=== PATIENT | male | born 1965 | race Hispanic/Latino ===

== ENCOUNTER → 2020-08-28 | Outpatient (CLI) | payer OTHER ==
[~2020-08-28] MED LIST: COVID-19 VACC, MRNA(MODERNA)/PF 100 MCG/0.5 ML VIAL IM ONE
== END ==
LOC: VACCPMC 16:00
DX: Z23 Encounter for immunization (principal); Z20.822 Contact with and (suspected) exposure to COVID-19

== ENCOUNTER → 2020-09-26 | Outpatient (CLI) | payer OTHER | END | DRG 951 | LOC: VACCPMC 12:10 | DX: Z23 Encounter for immunization (principal); Z20.822 Contact with and (suspected) exposure to COVID-19 | CPT/HCPCS: 0012A; 91301 ==

== ENCOUNTER → 2020-10-01 | Outpatient (CLI) | payer BC, MEDICARE | LOC: US 07:52 | PROVIDERS: ATTEND Radiology Vascular & Interventional Radiology | DX: I70.211 Atherosclerosis of native arteries of extremities with intermittent claudication, right leg (principal); N28.1 Cyst of kidney, acquired | CPT/HCPCS: 76700; 93925 ==

== ENCOUNTER 2022-07-06 21:24 | Emergency (ER) | payer BC, MEDICARE ==
[~2022-07-06] VITALS: Ht 188 cm; Wt 113.4 kg
[2022-07-06] MEDS ORDERED: KETOROLAC TROMETHAMINE 30 MG/ML VIAL IM STA (21:49)
[2022-07-06] MEDS ORDERED: HYDROCODONE/APAP 5MG-325MG TAB PO ONE (22:00)
[2022-07-06] MEDS ORDERED: KETOROLAC TROMETHAMINE 60 MG/2 ML VIAL ONE (22:21)
[2022-07-06] MEDS ORDERED: HYDROCODONE/APAP 5MG-325MG TAB ONE (22:21)
[2022-07-06] MEDS ORDERED: PREDNISONE20 MG PO (22:30)
== END 2022-07-06 23:18 | disposition home or self-care (01) ==
LOC: FSED 21:41 → MERGE 21:41 → FSED 23:18
DX: M79.642 Pain in left hand (principal); I10 Essential (primary) hypertension; E11.9 Type 2 diabetes mellitus without complications; I25.10 Atherosclerotic heart disease of native coronary artery without angina pectoris; I73.9 Peripheral vascular disease, unspecified
CPT/HCPCS: 73130; 99283; J1885

== ENCOUNTER 2022-10-31 17:45 | Emergency (ER) | payer BC, MEDICARE ==
[~2022-10-31] VITALS: Ht 180.3 cm; Wt 88.9 kg
[~2022-10-31 17:45] MED LIST changes: -COVID-19 VACC, MRNA(MODERNA)/PF 100 MCG/0.5 ML VIAL IM ONE; +PREDNISONE20 MG PO
[2022-10-31] MEDS ORDERED: HYDROCODON-ACE1 EA12 PO (20:33)
[2022-10-31 20:45] VITALS: BP 147/72
[2022-10-31] MEDS ORDERED: HYDROCODONE/APAP 5MG-325MG TAB PO ONE (20:45)
[2022-10-31] MEDS ORDERED: ONDANSETRON HCL 4 MG ORAL DISINTEGRATING TAB PO ONE (20:45)
[2022-10-31] MEDS ORDERED: ONDANSETRON HCL 4 MG ORAL DISINTEGRATING TAB ONE (20:48)
[2022-10-31] MEDS ORDERED: HYDROCODONE/APAP 5MG-325MG TAB ONE (20:48)
== END 2022-10-31 20:45 | disposition home or self-care (01) ==
LOC: FSED 18:42
DX: E11.621 Type 2 diabetes mellitus with foot ulcer (principal); L97.529 Non-pressure chronic ulcer of other part of left foot with unspecified severity; Z76.0 Encounter for issue of repeat prescription; E11.51 Type 2 diabetes mellitus with diabetic peripheral angiopathy without gangrene; Z95.820 Peripheral vascular angioplasty status with implants and grafts; I10 Essential (primary) hypertension; E78.5 Hyperlipidemia, unspecified; Z79.52 Long term (current) use of systemic steroids
CPT/HCPCS: 99282; Q0126

== ENCOUNTER 2022-11-07 15:36 | Inpatient (IN) | payer BC, MEDICARE ==
[~2022-11-07] VITALS: Ht 180.3 cm; Wt 88.7 kg
[~2022-11-07 15:36] MED LIST changes: +HYDROCODON-ACE1 EA12 PO
[2022-11-07] MEDS ORDERED: LACTATED RINGER'S 1,000 ML INJ ONE ×2 (16:15→16:30)
[2022-11-07] MEDS ORDERED: METOPROLOL SUCC50 MG PO (17:02)
[2022-11-07] MEDS ORDERED: EXFORGE 10-1601 EACH PO (17:02)
[2022-11-07] MEDS ORDERED: TRESIBA FL100 UNIT/1 SC (17:02)
[2022-11-07] MEDS ORDERED: HYDRALAZINE HCL25 MG PO (17:02)
[2022-11-07] MEDS ORDERED: FARXIGA5 MG PO (17:02)
[2022-11-07] MEDS ORDERED: PLAVIX75 MG PO (17:02)
[2022-11-07] MEDS ORDERED: VICTOZA 3-0.6 MG/0.1 SC (17:02)
[2022-11-07] MEDS ORDERED: NOVOLOG100 UNIT/1 SC (17:02)
[2022-11-07] MEDS ORDERED: ONDANSETRON HCL INJ 2MG/ML 2ML 2 MG/ML VIAL ONE (17:44)
[2022-11-07] MEDS ORDERED: LACTATED RINGER'S 2,000 ML ONE (17:45)
[2022-11-07] MEDS ORDERED: ACETAMINOPHEN 325 MG TAB ONE (17:54)
[2022-11-07] MEDS: CEFEPIME 2 GM in SODIUM CHLORIDE 0.9% 100 ML IV SCH (17:58)
[2022-11-07] MEDS ORDERED: ONDANSETRON HCL INJ 2MG/ML 2ML 2 MG/ML VIAL IV STA (18:06)
[2022-11-07] MEDS ORDERED: ACETAMINOPHEN 325 MG TAB PO ONE (18:15)
[2022-11-07 18:26] LABS: INR 1.03
[2022-11-07 18:27] LABS: PARTIAL THROMBOPLASTIN TIME 35.7 seconds (23.8-35.5)
[2022-11-07] MEDS ORDERED: LACTATED RINGER'S 1,000 ML IV ONE (18:30)
[2022-11-07] MEDS ORDERED: KETOROLAC TROMETHAMINE 30 MG/ML VIAL IV ONE (18:30)
[2022-11-07] MEDS ORDERED: SODIUM CHLORIDE 0.9% 100 ML ONE (18:31)
[2022-11-07] MEDS ORDERED: CEFEPIME HCL 1 GM VIAL ONE (18:31)
[2022-11-07] MEDS ORDERED: IOPAMIDOL 370 MG/ML 100 ML INFUS..BTL INJ ONE ×2 (18:34→19:52)
[2022-11-07] MEDS ORDERED: LACTATED RINGER'S 1,000 ML ONE (18:42)
[2022-11-07] MEDS ORDERED: KETOROLAC TROMETHAMINE 30 MG/ML VIAL ONE (18:42)
[2022-11-07] MEDS ORDERED: SODIUM CHLORIDE FLUSH 10 ML SYR INJ PRN (19:15)
[2022-11-07] MEDS ORDERED: FUROSEMIDE INJ 10 MG/ML 4 ML VIAL IV ONE (19:15)
[2022-11-07] MEDS ORDERED: FUROSEMIDE INJ 10 MG/ML 4 ML VIAL ONE (19:20)
[2022-11-07] MEDS ORDERED: DEXTROSE 50% SYRINGE 50 ML IV PRN (19:30)
[2022-11-07] MEDS: LEVOFLOXACIN 750MG/D5W 150ML 150 ML IV SCH (19:33)
[2022-11-07] MEDS ORDERED: LEVOFLOXACIN 750MG/D5W 150ML 150 ML IV ONE (19:42)
[2022-11-07] MEDS ORDERED: Vancomycin IV 2 GM in SODIUM CHLORIDE 0.9% 250ML 250 ML IV ONE (20:00)
[2022-11-07 20:12] VITALS: BP 116/49
[2022-11-07] MEDS: INSULIN LISPRO 100 UNIT/1 ML 3ML VIAL SQ SCH (21:00)
[2022-11-07] MEDS: ONDANSETRON HCL INJ 2MG/ML 2ML 2 MG/ML VIAL IV PRN (21:39)
[2022-11-07] MEDS: HYDROMORPHONE 1MG/1ML INJ IV PRN (21:39)
[2022-11-07 22:00] VITALS: BP 114/88
[2022-11-07 23:04] VITALS: BP 46/13
[2022-11-07 23:09] VITALS: BP 107/52
[2022-11-07 23:29] VITALS: BP 107/52
[2022-11-08] VITALS (25 sets, daily range): BP systolic 129–167; BP diastolic 58–147
[2022-11-08] MEDS: ONDANSETRON HCL INJ 2MG/ML 2ML 2 MG/ML VIAL IV PRN ×3 (01:03→19:28)
[2022-11-08] MEDS: HYDROMORPHONE 1MG/1ML INJ IV PRN ×6 (01:04→23:31)
[2022-11-08 01:10] LABS: CREATINE KINASE MB 2.7 ng/mL (0-4.3)
[2022-11-08] MEDS: ACETAMINOPHEN 325 MG TAB PO PRN ×3 (04:01→18:44)
[2022-11-08 06:14] LABS: BASOPHILS % 0.3 % (0.0-1.0); HEMATOCRIT 40.9 % (38.2-49.6); HEMOGLOBIN 11.9 g/dL (14.0-18.0); LYMPHOCYTES # (AUTO) 0.8 (1.0-3.2); LYMPHOCYTES % 12.9 % (18.0-39.1); MEAN CORPUSCULAR HEMOGLOBIN 22.4 pg (28-32); MEAN CORPUSCULAR HGB CONC 29.1 g/dL (31-35); MEAN CORPUSCULAR VOLUME 76.9 fL (81-99); MONOCYTES # (AUTO) 0.7 (0.2-0.8); NEUTROPHILS # (AUTO) 4.3 (2.1-6.9); NEUTROPHILS % 74.3 % (38.7-80.0); PLATELET COUNT 167 x10e3/uL (140-360); RED BLOOD COUNT 5.32 x10e6/uL (4.3-5.7); RED CELL DISTRIBUTION WIDTH 17.1 % (11.7-14.4)
[2022-11-08 06:29] LABS: ANION GAP 12.8 mmol/L (8-16); CALCIUM 8.4 mg/dL (8.4-10.2); CREATININE, SERUM 1.66 mg/dL (0.72-1.25); POTASSIUM 3.8 mmol/L (3.5-5.1)
[2022-11-08 07:21] LABS: CREATINE KINASE MB 2.4 ng/mL (0-4.3)
[2022-11-08] MEDS: INSULIN LISPRO 100 UNIT/1 ML 3ML VIAL SQ SCH ×4 (07:29→21:00)
[2022-11-08] MEDS: CEFEPIME 2 GM in SODIUM CHLORIDE 0.9% 100 ML IV SCH ×2 (08:08→20:30)
[2022-11-08] MEDS: METOPROLOL SUCCINATE 50 MG TAB XL PO SCH (09:09)
[2022-11-08] MEDS: CLOPIDOGREL BISULFATE 75 MG TAB PO SCH (09:09)
[2022-11-08 09:15] LABS: INFLUENZAE A&B ANTIGEN (RAPID) NEGATIVE (NEGATIVE)
[2022-11-08] MEDS ORDERED: TRICOR145 MG PO (09:21)
[2022-11-08] MEDS ORDERED: LIPITOR20 MG PO (09:21)
[2022-11-08] MEDS ORDERED: PANTOPRAZOLE SO40 MG PO (09:21)
[2022-11-08] MEDS ORDERED: OMEGA-31000 MG PO (09:21)
[2022-11-08 09:32] LABS: RESPIRATORY SYNC. VIRUS NEGATIVE (NEGATIVE)
[2022-11-08 13:28] LABS: CREATINE KINASE MB 2.5 ng/mL (0-4.3)
[2022-11-08] MEDS: LEVOFLOXACIN 750MG/D5W 150ML 150 ML IV SCH (18:36)
[2022-11-08 18:48] LABS: CLARITY,URINE CLEAR (CLEAR); COLOR,URINE YELLOW (YELLOW); KETONES,URINE TRACE (NEGATIVE); LEUKOCYTE ESTERASE ,URINE NEGATIVE (NEGATIVE); NITRITE,URINE NEGATIVE (NEGATIVE); PROTEIN,URINE DIPSTICK 2+ (NEGATIVE); URINE UROBILINOGEN 0.2 mg/dL (0.2 - 1)
[2022-11-08 18:57] LABS: BACTERIA,URINE MANY /HPF; EPITHELIAL CELLS,URINE FEW /LPF; HYALINE CASTS 0-1 (0-1); RBC,URINE 0-5 /HPF (0-5); WBC,URINE (MAN) 0-5 /HPF (0-5)
[2022-11-09] VITALS (22 sets, daily range): BP systolic 125–166; BP diastolic 59–98
[2022-11-09] MEDS: ONDANSETRON HCL INJ 2MG/ML 2ML 2 MG/ML VIAL IV PRN ×3 (03:20→19:26)
[2022-11-09] MEDS: HYDROMORPHONE 1MG/1ML INJ IV PRN ×6 (03:21→20:57)
[2022-11-09] MEDS: METOPROLOL TARTRATE 25 MG TAB PO PRN ×2 (04:27→10:23)
[2022-11-09 06:56] LABS: BASOPHILS % 0.3 % (0.0-1.0); EOSINOPHILS % 0.1 % (0.0-6.0); HEMATOCRIT 39.5 % (38.2-49.6); HEMOGLOBIN 11.5 g/dL (14.0-18.0); LYMPHOCYTES # (AUTO) 0.9 (1.0-3.2); LYMPHOCYTES % 9.1 % (18.0-39.1); MEAN CORPUSCULAR HEMOGLOBIN 22.3 pg (28-32); MEAN CORPUSCULAR HGB CONC 29.1 g/dL (31-35); MEAN CORPUSCULAR VOLUME 76.6 fL (81-99); MONOCYTES # (AUTO) 1.5 (0.2-0.8); MONOCYTES % 14.5 % (4.4-11.3); NEUTROPHILS # (AUTO) 7.5 (2.1-6.9); NEUTROPHILS % 75.6 % (38.7-80.0); PLATELET COUNT 153 x10e3/uL (140-360); RED BLOOD COUNT 5.16 x10e6/uL (4.3-5.7); RED CELL DISTRIBUTION WIDTH 16.7 % (11.7-14.4)
[2022-11-09 07:19] LABS: ALBUMIN 2.8 g/dL (3.5-5.0); ALBUMIN/GLOBULIN RATIO 0.8 (0.8-2.0); ANION GAP 15.6 mmol/L (8-16); CALCIUM 8.6 mg/dL (8.4-10.2); CREATININE, SERUM 1.71 mg/dL (0.72-1.25); POTASSIUM 4.6 mmol/L (3.5-5.1)
[2022-11-09] MEDS: INSULIN LISPRO 100 UNIT/1 ML 3ML VIAL SQ SCH ×4 (07:30→20:46)
[2022-11-09] MEDS: CEFEPIME 2 GM in SODIUM CHLORIDE 0.9% 100 ML IV SCH ×2 (10:22→20:29)
[2022-11-09] MEDS: METOPROLOL SUCCINATE 50 MG TAB XL PO SCH (10:23)
[2022-11-09] MEDS: CLOPIDOGREL BISULFATE 75 MG TAB PO SCH (10:23)
[2022-11-09] MEDS ORDERED: LORAZEPAM 0.5 MG TAB PO ONE (14:15)
[2022-11-09] MEDS: LEVOFLOXACIN 750MG/D5W 150ML 150 ML IV SCH (18:00)
[2022-11-09 20:58] LABS: BASOPHILS % 0.2 % (0.0-1.0); EOSINOPHILS % 0.2 % (0.0-6.0); HEMATOCRIT 37.6 % (38.2-49.6); LYMPHOCYTES # (AUTO) 0.9 (1.0-3.2); LYMPHOCYTES % 8.4 % (18.0-39.1); MEAN CORPUSCULAR HEMOGLOBIN 22.4 pg (28-32); MEAN CORPUSCULAR HGB CONC 29.3 g/dL (31-35); MEAN CORPUSCULAR VOLUME 76.4 fL (81-99); MONOCYTES # (AUTO) 1.7 (0.2-0.8); MONOCYTES % 15.7 % (4.4-11.3); NEUTROPHILS # (AUTO) 8.2 (2.1-6.9); NEUTROPHILS % 75.2 % (38.7-80.0); PLATELET COUNT 150 x10e3/uL (140-360); RED BLOOD COUNT 4.92 x10e6/uL (4.3-5.7); RED CELL DISTRIBUTION WIDTH 16.8 % (11.7-14.4)
[2022-11-09 21:19] LABS: ALBUMIN 2.6 g/dL (3.5-5.0); ALBUMIN/GLOBULIN RATIO 0.7 (0.8-2.0); ANION GAP 14.9 mmol/L (8-16); CALCIUM 8.6 mg/dL (8.4-10.2); CREATININE, SERUM 2.01 mg/dL (0.72-1.25); POTASSIUM 4.9 mmol/L (3.5-5.1)
[2022-11-10] VITALS (20 sets, daily range): BP systolic 120–155; BP diastolic 55–107
[2022-11-10] MEDS: HYDROMORPHONE 1MG/1ML INJ IV PRN ×4 (00:57→11:49)
[2022-11-10] MEDS: ONDANSETRON HCL INJ 2MG/ML 2ML 2 MG/ML VIAL IV PRN ×4 (00:57→21:59)
[2022-11-10] MEDS: INSULIN LISPRO 100 UNIT/1 ML 3ML VIAL SQ SCH ×4 (07:30→21:18)
[2022-11-10] MEDS: TAMSULOSIN HCL 0.4 MG CAP PO SCH ×2 (09:00→21:13)
[2022-11-10] MEDS: CEFEPIME 2 GM in SODIUM CHLORIDE 0.9% 100 ML IV SCH ×2 (09:11→21:12)
[2022-11-10] MEDS: METOPROLOL SUCCINATE 50 MG TAB XL PO SCH (09:12)
[2022-11-10] MEDS: CLOPIDOGREL BISULFATE 75 MG TAB PO SCH (09:12)
[2022-11-10] MEDS ORDERED: FUROSEMIDE INJ 10 MG/ML 4 ML VIAL IV ONE (11:00)
[2022-11-10 12:03] LABS: BASOPHILS % 0.1 % (0.0-1.0); EOSINOPHILS % 0.2 % (0.0-6.0); HEMATOCRIT 34.5 % (38.2-49.6); HEMOGLOBIN 10.3 g/dL (14.0-18.0); LYMPHOCYTES # (AUTO) 0.8 (1.0-3.2); MEAN CORPUSCULAR HEMOGLOBIN 22.5 pg (28-32); MEAN CORPUSCULAR HGB CONC 29.9 g/dL (31-35); MEAN CORPUSCULAR VOLUME 75.5 fL (81-99); MONOCYTES # (AUTO) 1.5 (0.2-0.8); MONOCYTES % 14.7 % (4.4-11.3); NEUTROPHILS # (AUTO) 7.8 (2.1-6.9); NEUTROPHILS % 76.6 % (38.7-80.0); PLATELET COUNT 144 x10e3/uL (140-360); RED BLOOD COUNT 4.57 x10e6/uL (4.3-5.7); RED CELL DISTRIBUTION WIDTH 16.9 % (11.7-14.4)
[2022-11-10 12:26] LABS: ANION GAP 15.8 mmol/L (8-16); CALCIUM 8.5 mg/dL (8.4-10.2); CREATININE, SERUM 1.9 mg/dL (0.72-1.25); POTASSIUM 4.8 mmol/L (3.5-5.1)
[2022-11-10] MEDS ORDERED: LORTAB 10 MG-3473 ML PO (14:04)
[2022-11-10] MEDS ORDERED: TRESIBA FL100 UNIT/1 SC (14:04)
[2022-11-10] MEDS ORDERED: TADALAFIL20 M1 PO (14:04)
[2022-11-10] MEDS ORDERED: FOLIC ACID0.4 MG PO (14:04)
[2022-11-10] MEDS: HYDROCODONE/APAP 7.5MG-325MG 1 EA TAB PO PRN (16:22)
[2022-11-10 20:24] LABS: FREE THYROXINE INDEX 1.5433 (1.4-3.8); THYROID STIMULATING HORMONE 1.818 uIU/mL (0.350-4.940)
[2022-11-10] MEDS ORDERED: FUROSEMIDE INJ 10 MG/ML 4 ML VIAL IV SCH (21:00)
[2022-11-11] VITALS (15 sets, daily range): BP systolic 118–153; BP diastolic 47–97
[2022-11-11] MEDS: ACETAMINOPHEN 325 MG TAB PO PRN (00:21)
[2022-11-11] MEDS: HYDROCODONE/APAP 7.5MG-325MG 1 EA TAB PO PRN ×3 (02:21→19:58)
[2022-11-11 06:33] LABS: BASOPHILS % 0.1 % (0.0-1.0); EOSINOPHILS # (AUTO) 0.1 (0.0-0.4); EOSINOPHILS % 0.6 % (0.0-6.0); HEMATOCRIT 31.3 % (38.2-49.6); HEMOGLOBIN 9.3 g/dL (14.0-18.0); LYMPHOCYTES # (AUTO) 1.1 (1.0-3.2); LYMPHOCYTES % 11.7 % (18.0-39.1); MEAN CORPUSCULAR HEMOGLOBIN 22.2 pg (28-32); MEAN CORPUSCULAR HGB CONC 29.7 g/dL (31-35); MEAN CORPUSCULAR VOLUME 74.9 fL (81-99); MONOCYTES # (AUTO) 1.3 (0.2-0.8); MONOCYTES % 13.2 % (4.4-11.3); NEUTROPHILS # (AUTO) 7.2 (2.1-6.9); NEUTROPHILS % 73.9 % (38.7-80.0); PLATELET COUNT 152 x10e3/uL (140-360); RED BLOOD COUNT 4.18 x10e6/uL (4.3-5.7); RED CELL DISTRIBUTION WIDTH 16.6 % (11.7-14.4)
[2022-11-11 06:53] LABS: ALBUMIN 2.1 g/dL (3.5-5.0); ALBUMIN/GLOBULIN RATIO 0.6 (0.8-2.0); ANION GAP 13.2 mmol/L (8-16); CALCIUM 8.6 mg/dL (8.4-10.2); CREATININE, SERUM 1.85 mg/dL (0.72-1.25); POTASSIUM 4.2 mmol/L (3.5-5.1)
[2022-11-11] MEDS: CLOPIDOGREL BISULFATE 75 MG TAB PO SCH (08:32)
[2022-11-11] MEDS: POTASSIUM CHLORIDE 20 MEQ TAB CR PO SCH (08:32)
[2022-11-11] MEDS: CEFEPIME 2 GM in SODIUM CHLORIDE 0.9% 100 ML IV SCH (08:33)
[2022-11-11] MEDS: INSULIN LISPRO 100 UNIT/1 ML 3ML VIAL SQ SCH ×2 (08:34→15:14)
[2022-11-11] MEDS: METOPROLOL SUCCINATE 50 MG TAB XL PO SCH (08:35)
[2022-11-11] MEDS: HEPARIN SOD (PORCINE) 5,000 UNIT/ML VIAL SC SCH ×2 (08:37→21:43)
[2022-11-11] MEDS: ONDANSETRON HCL INJ 2MG/ML 2ML 2 MG/ML VIAL IV PRN ×2 (08:52→21:28)
[2022-11-11] MEDS ORDERED: Morphine 2mg Syringe 2 MG/ML SYR IV ONE (13:30)
[2022-11-11] MEDS: BUSPIRONE HCL 5 MG TAB PO SCH ×2 (15:11→21:47)
[2022-11-11] MEDS: FUROSEMIDE INJ 100 MG in SODIUM CHLORIDE 0.9% 90 ML IV SCH (17:29)
[2022-11-11] MEDS ORDERED: INSULIN DEGLUDEC 50 UNIT SQ SCH (21:00)
[2022-11-11] MEDS: METHYLPREDNISOLONE SOD SUCC 40 MG/ML VIAL 1ML IV SCH (21:41)
[2022-11-11] MEDS: TAMSULOSIN HCL 0.4 MG CAP PO SCH (21:47)
[2022-11-12] VITALS (13 sets, daily range): BP systolic 111–146; BP diastolic 47–76
[2022-11-12] MEDS: HYDROCODONE/APAP 7.5MG-325MG 1 EA TAB PO PRN ×3 (04:21→20:51)
[2022-11-12] MEDS ORDERED: FUROSEMIDE INJ 10 MG/ML 4 ML VIAL IV SCH (06:00)
[2022-11-12] MEDS ORDERED: INSULIN DEGLUDEC 50 UNIT SQ SCH (07:00)
[2022-11-12 07:24] LABS: BASOPHILS % 0.1 % (0.0-1.0); HEMATOCRIT 32.6 % (38.2-49.6); HEMOGLOBIN 9.7 g/dL (14.0-18.0); LYMPHOCYTES # (AUTO) 0.5 (1.0-3.2); LYMPHOCYTES % 4.9 % (18.0-39.1); MEAN CORPUSCULAR HEMOGLOBIN 22.5 pg (28-32); MEAN CORPUSCULAR HGB CONC 29.8 g/dL (31-35); MEAN CORPUSCULAR VOLUME 75.6 fL (81-99); MONOCYTES # (AUTO) 0.6 (0.2-0.8); MONOCYTES % 6.3 % (4.4-11.3); NEUTROPHILS # (AUTO) 8.8 (2.1-6.9); NEUTROPHILS % 88.2 % (38.7-80.0); PLATELET COUNT 194 x10e3/uL (140-360); RED BLOOD COUNT 4.31 x10e6/uL (4.3-5.7); RED CELL DISTRIBUTION WIDTH 16.9 % (11.7-14.4)
[2022-11-12 07:48] LABS: ALBUMIN 1.9 g/dL (3.5-5.0); ALBUMIN/GLOBULIN RATIO 0.4 (0.8-2.0); ANION GAP 17.4 mmol/L (8-16); CREATININE, SERUM 1.73 mg/dL (0.72-1.25); POTASSIUM 5.4 mmol/L (3.5-5.1)
[2022-11-12] MEDS: METOPROLOL SUCCINATE 50 MG TAB XL PO SCH (08:22)
[2022-11-12] MEDS: INSULIN LISPRO 100 UNIT/1 ML 3ML VIAL SQ SCH ×3 (08:22→16:53)
[2022-11-12] MEDS: CLOPIDOGREL BISULFATE 75 MG TAB PO SCH (08:22)
[2022-11-12] MEDS: BUSPIRONE HCL 5 MG TAB PO SCH ×3 (08:23→22:30)
[2022-11-12] MEDS: POTASSIUM CHLORIDE 20 MEQ TAB CR PO SCH (08:23)
[2022-11-12] MEDS: METHYLPREDNISOLONE SOD SUCC 40 MG/ML VIAL 1ML IV SCH ×2 (08:23→22:31)
[2022-11-12] MEDS: HEPARIN SOD (PORCINE) 5,000 UNIT/ML VIAL SC SCH ×2 (08:24→22:44)
[2022-11-12] MEDS: FUROSEMIDE INJ 100 MG in SODIUM CHLORIDE 0.9% 90 ML IV SCH (16:05)
[2022-11-12] MEDS: INSULIN DEGLUDEC SQ SCH (21:00)
[2022-11-12] MEDS: TAMSULOSIN HCL 0.4 MG CAP PO SCH (22:30)
[2022-11-12] MEDS: ONDANSETRON HCL INJ 2MG/ML 2ML 2 MG/ML VIAL IV PRN (22:57)
[2022-11-13] VITALS (7 sets, daily range): BP systolic 143–164; BP diastolic 59–75
[2022-11-13] MEDS: HYDROCODONE/APAP 7.5MG-325MG 1 EA TAB PO PRN ×3 (06:15→23:10)
[2022-11-13 06:33] LABS: BASOPHILS % 0.1 % (0.0-1.0); HEMATOCRIT 33.8 % (38.2-49.6); HEMOGLOBIN 10.1 g/dL (14.0-18.0); LYMPHOCYTES # (AUTO) 0.5 (1.0-3.2); MEAN CORPUSCULAR HEMOGLOBIN 22.2 pg (28-32); MEAN CORPUSCULAR HGB CONC 29.9 g/dL (31-35); MEAN CORPUSCULAR VOLUME 74.4 fL (81-99); MONOCYTES # (AUTO) 0.5 (0.2-0.8); MONOCYTES % 3.7 % (4.4-11.3); NEUTROPHILS # (AUTO) 12.5 (2.1-6.9); NEUTROPHILS % 91.5 % (38.7-80.0); PLATELET COUNT 240 x10e3/uL (140-360); RED BLOOD COUNT 4.54 x10e6/uL (4.3-5.7); RED CELL DISTRIBUTION WIDTH 17.1 % (11.7-14.4)
[2022-11-13 06:54] LABS: ALBUMIN 1.9 g/dL (3.5-5.0); ALBUMIN/GLOBULIN RATIO 0.4 (0.8-2.0); ANION GAP 15.4 mmol/L (8-16); CREATININE, SERUM 1.43 mg/dL (0.72-1.25); POTASSIUM 4.4 mmol/L (3.5-5.1)
[2022-11-13] MEDS: INSULIN DEGLUDEC 180 UNIT SQ SCH (07:00)
[2022-11-13] MEDS: INSULIN LISPRO 100 UNIT/1 ML 3ML VIAL SQ SCH ×3 (07:30→16:30)
[2022-11-13] MEDS: FUROSEMIDE INJ 100 MG in SODIUM CHLORIDE 0.9% 90 ML IV SCH (07:45)
[2022-11-13] MEDS: METHYLPREDNISOLONE SOD SUCC 40 MG/ML VIAL 1ML IV SCH (08:00)
[2022-11-13] MEDS: BUSPIRONE HCL 5 MG TAB PO SCH ×3 (08:01→21:00)
[2022-11-13] MEDS: CLOPIDOGREL BISULFATE 75 MG TAB PO SCH (08:01)
[2022-11-13] MEDS: METOPROLOL SUCCINATE 50 MG TAB XL PO SCH (08:01)
[2022-11-13] MEDS: HEPARIN SOD (PORCINE) 5,000 UNIT/ML VIAL SC SCH ×2 (08:09→21:00)
[2022-11-13] MEDS: ONDANSETRON HCL INJ 2MG/ML 2ML 2 MG/ML VIAL IV PRN ×2 (08:11→21:30)
[2022-11-13] MEDS ORDERED: ALBUTEROL SULF 0.083% NEB SOLN 3 ML NEB NEB PRN (11:15)
[2022-11-13] MEDS ORDERED: IPRATROPIUM BROMIDE 0.02% 2.5 ML NEB NEB PRN (11:30)
[2022-11-13] MEDS ORDERED: ASPIRIN 81 MG CHEW TAB PO ONE (11:45)
[2022-11-13] MEDS ORDERED: SODIUM CHLORIDE 0.9% 250ML 250 ML ONE ×2 (12:41→21:31)
[2022-11-13] MEDS ORDERED: ALTEPLASE RECOMBINANT 2 MG/2 ML VIAL IV PRN (15:45)
[2022-11-13] MEDS ORDERED: HYDROCODONE/APAP 5MG-325MG TAB PO ONE (17:00)
[2022-11-13] MEDS: OMEGA 3 POLYUNSAT FATTY ACIDS 1000 MG SOFTGEL PO SCH (17:21)
[2022-11-13] MEDS: FUROSEMIDE INJ 10 MG/ML 4 ML VIAL IV SCH (20:59)
[2022-11-13] MEDS: ATORVASTATIN 40 MG TAB PO SCH (21:00)
[2022-11-13] MEDS: INSULIN DEGLUDEC SQ SCH (21:00)
[2022-11-13] MEDS: TAMSULOSIN HCL 0.4 MG CAP PO SCH (21:00)
[2022-11-13] MEDS ORDERED: FUROSEMIDE INJ 10 MG/ML 4 ML VIAL IV SCH (21:00)
[2022-11-14] VITALS (9 sets, daily range): BP systolic 135–149; BP diastolic 60–84
[2022-11-14 06:26] LABS: BASOPHILS % 0.2 % (0.0-1.0); EOSINOPHILS % 0.1 % (0.0-6.0); HEMATOCRIT 32.9 % (38.2-49.6); HEMOGLOBIN 9.9 g/dL (14.0-18.0); LYMPHOCYTES # (AUTO) 1.4 (1.0-3.2); LYMPHOCYTES % 8.1 % (18.0-39.1); MEAN CORPUSCULAR HEMOGLOBIN 22.3 pg (28-32); MEAN CORPUSCULAR HGB CONC 30.1 g/dL (31-35); MEAN CORPUSCULAR VOLUME 74.3 fL (81-99); MONOCYTES # (AUTO) 1.5 (0.2-0.8); MONOCYTES % 8.6 % (4.4-11.3); NEUTROPHILS # (AUTO) 14.1 (2.1-6.9); NEUTROPHILS % 82.1 % (38.7-80.0); PLATELET COUNT 336 x10e3/uL (140-360); RED BLOOD COUNT 4.43 x10e6/uL (4.3-5.7); RED CELL DISTRIBUTION WIDTH 17.1 % (11.7-14.4)
[2022-11-14 06:42] LABS: ALBUMIN 1.9 g/dL (3.5-5.0); ALBUMIN/GLOBULIN RATIO 0.5 (0.8-2.0); ANION GAP 14.9 mmol/L (8-16); CALCIUM 8.9 mg/dL (8.4-10.2); CREATININE, SERUM 1.25 mg/dL (0.72-1.25); POTASSIUM 3.9 mmol/L (3.5-5.1)
[2022-11-14] MEDS: INSULIN DEGLUDEC 180 UNIT SQ SCH (07:00)
[2022-11-14] MEDS: INSULIN LISPRO 100 UNIT/1 ML 3ML VIAL SQ SCH ×3 (07:30→16:30)
[2022-11-14] MEDS: BUSPIRONE HCL 5 MG TAB PO SCH ×3 (09:17→20:22)
[2022-11-14] MEDS: FENOFIBRATE 145 MG TAB PO SCH (09:17)
[2022-11-14] MEDS: CLOPIDOGREL BISULFATE 75 MG TAB PO SCH (09:17)
[2022-11-14] MEDS: OMEGA 3 POLYUNSAT FATTY ACIDS 1000 MG SOFTGEL PO SCH ×2 (09:17→17:24)
[2022-11-14] MEDS: FUROSEMIDE INJ 10 MG/ML 4 ML VIAL IV SCH ×2 (09:18→20:21)
[2022-11-14] MEDS: METOPROLOL SUCCINATE 50 MG TAB XL PO SCH (09:18)
[2022-11-14] MEDS: FOLIC ACID 1 MG TAB PO SCH (09:18)
[2022-11-14] MEDS: HYDROCODONE/APAP 7.5MG-325MG 1 EA TAB PO PRN ×2 (09:30→19:03)
[2022-11-14] MEDS: ONDANSETRON HCL INJ 2MG/ML 2ML 2 MG/ML VIAL IV PRN ×2 (09:30→19:03)
[2022-11-14] MEDS: HEPARIN SOD (PORCINE) 5,000 UNIT/ML VIAL SC SCH ×2 (09:36→20:36)
[2022-11-14] MEDS: TAMSULOSIN HCL 0.4 MG CAP PO SCH (20:22)
[2022-11-14] MEDS: INSULIN DEGLUDEC SQ SCH (20:23)
[2022-11-14] MEDS: ATORVASTATIN 40 MG TAB PO SCH (20:23)
[2022-11-15] VITALS (8 sets, daily range): BP systolic 137–155; BP diastolic 61–75
[2022-11-15 05:20] LABS: BASOPHILS % 0.4 % (0.0-1.0); EOSINOPHILS # (AUTO) 0.3 (0.0-0.4); EOSINOPHILS % 2.4 % (0.0-6.0); HEMATOCRIT 34.6 % (38.2-49.6); HEMOGLOBIN 10.1 g/dL (14.0-18.0); LYMPHOCYTES # (AUTO) 2.6 (1.0-3.2); LYMPHOCYTES % 24.2 % (18.0-39.1); MEAN CORPUSCULAR HEMOGLOBIN 22.3 pg (28-32); MEAN CORPUSCULAR HGB CONC 29.2 g/dL (31-35); MEAN CORPUSCULAR VOLUME 76.5 fL (81-99); MONOCYTES # (AUTO) 1.4 (0.2-0.8); MONOCYTES % 12.8 % (4.4-11.3); NEUTROPHILS # (AUTO) 6.1 (2.1-6.9); NEUTROPHILS % 57.2 % (38.7-80.0); PLATELET COUNT 370 x10e3/uL (140-360); RED BLOOD COUNT 4.52 x10e6/uL (4.3-5.7); RED CELL DISTRIBUTION WIDTH 17.2 % (11.7-14.4)
[2022-11-15 05:38] LABS: ALBUMIN 1.9 g/dL (3.5-5.0); ALBUMIN/GLOBULIN RATIO 0.5 (0.8-2.0); ANION GAP 14.7 mmol/L (8-16); CALCIUM 8.5 mg/dL (8.4-10.2); CREATININE, SERUM 1.45 mg/dL (0.72-1.25); POTASSIUM 3.7 mmol/L (3.5-5.1)
[2022-11-15] MEDS: INSULIN DEGLUDEC 180 UNIT SQ SCH (07:00)
[2022-11-15] MEDS: INSULIN LISPRO 100 UNIT/1 ML 3ML VIAL SQ SCH ×3 (07:30→15:34)
[2022-11-15] MEDS: HYDROCODONE/APAP 7.5MG-325MG 1 EA TAB PO PRN ×3 (07:40→22:41)
[2022-11-15] MEDS: OMEGA 3 POLYUNSAT FATTY ACIDS 1000 MG SOFTGEL PO SCH ×2 (09:16→16:01)
[2022-11-15] MEDS: BUSPIRONE HCL 5 MG TAB PO SCH ×3 (09:16→20:35)
[2022-11-15] MEDS: CLOPIDOGREL BISULFATE 75 MG TAB PO SCH (09:17)
[2022-11-15] MEDS: FOLIC ACID 1 MG TAB PO SCH (09:17)
[2022-11-15] MEDS: METOPROLOL SUCCINATE 50 MG TAB XL PO SCH (09:17)
[2022-11-15] MEDS: FENOFIBRATE 145 MG TAB PO SCH (09:17)
[2022-11-15] MEDS: ONDANSETRON HCL INJ 2MG/ML 2ML 2 MG/ML VIAL IV PRN ×2 (09:23→20:40)
[2022-11-15] MEDS: HEPARIN SOD (PORCINE) 5,000 UNIT/ML VIAL SC SCH ×2 (09:29→21:07)
[2022-11-15] MEDS: ATORVASTATIN 40 MG TAB PO SCH (20:35)
[2022-11-15] MEDS: TAMSULOSIN HCL 0.4 MG CAP PO SCH (20:35)
[2022-11-15] MEDS: INSULIN DEGLUDEC SQ SCH (21:00)
[2022-11-16 04:49] VITALS: BP 147/67
[2022-11-16 06:23] LABS: BASOPHILS % 0.4 % (0.0-1.0); EOSINOPHILS # (AUTO) 0.4 (0.0-0.4); EOSINOPHILS % 3.6 % (0.0-6.0); HEMATOCRIT 33.1 % (38.2-49.6); LYMPHOCYTES # (AUTO) 2.6 (1.0-3.2); LYMPHOCYTES % 25.3 % (18.0-39.1); MEAN CORPUSCULAR HEMOGLOBIN 24.2 pg (28-32); MEAN CORPUSCULAR HGB CONC 30.2 g/dL (31-35); MEAN CORPUSCULAR VOLUME 80.1 fL (81-99); MONOCYTES # (AUTO) 1.4 (0.2-0.8); MONOCYTES % 13.4 % (4.4-11.3); NEUTROPHILS # (AUTO) 5.4 (2.1-6.9); NEUTROPHILS % 52.6 % (38.7-80.0); PLATELET COUNT 345 x10e3/uL (140-360); RED BLOOD COUNT 4.13 x10e6/uL (4.3-5.7)
[2022-11-16 06:54] LABS: ALBUMIN/GLOBULIN RATIO 0.6 (0.8-2.0); ANION GAP 12.3 mmol/L (8-16); CALCIUM 8.5 mg/dL (8.4-10.2); CREATININE, SERUM 1.02 mg/dL (0.72-1.25); POTASSIUM 4.3 mmol/L (3.5-5.1)
[2022-11-16] MEDS: INSULIN DEGLUDEC 180 UNIT SQ SCH (07:00)
[2022-11-16] MEDS: HYDROCODONE/APAP 7.5MG-325MG 1 EA TAB PO PRN (07:27)
[2022-11-16] MEDS: INSULIN LISPRO 100 UNIT/1 ML 3ML VIAL SQ SCH (07:33)
[2022-11-16] MEDS: OMEGA 3 POLYUNSAT FATTY ACIDS 1000 MG SOFTGEL PO SCH (08:00)
[2022-11-16] MEDS: FOLIC ACID 1 MG TAB PO SCH (08:00)
[2022-11-16] MEDS: BUSPIRONE HCL 5 MG TAB PO SCH (08:01)
[2022-11-16] MEDS: CLOPIDOGREL BISULFATE 75 MG TAB PO SCH (08:01)
[2022-11-16] MEDS: METOPROLOL SUCCINATE 50 MG TAB XL PO SCH (08:01)
[2022-11-16] MEDS: FENOFIBRATE 145 MG TAB PO SCH (08:01)
[2022-11-16] MEDS: HEPARIN SOD (PORCINE) 5,000 UNIT/ML VIAL SC SCH (08:05)
[2022-11-16] MEDS: ONDANSETRON HCL INJ 2MG/ML 2ML 2 MG/ML VIAL IV PRN (08:08)
[2022-11-16 08:35] VITALS: BP 164/68
[2022-11-16 08:39] VITALS: BP 169/69
[2022-11-16] MEDS ORDERED: FUROSEMIDE 20 MG TAB PO SCH (09:00)
[2022-11-16 09:19] VITALS: BP 169/69
== END 2022-11-16 09:25 | disposition home or self-care (01) | DRG 871 ==
LOC: FSED 15:56 → ERHOLD 19:19 → ICU 20:27 → IMCU 11-12 18:32
PROVIDERS: ADMIT Family Medicine; ATTEND Internal Medicine
PROC: 02HV33Z Insertion of Infusion Device into Superior Vena Cava, Percutaneous Approach (ICD-10-PCS; principal; 2022-11-07)
PROC: 3E04329 Introduction of Other Anti-infective into Central Vein, Percutaneous Approach (ICD-10-PCS; 2022-11-07)
PROC: 4A033R1 Measurement of Arterial Saturation, Peripheral, Percutaneous Approach (ICD-10-PCS; 2022-11-08)
PROC: 5A0935A Assistance with Respiratory Ventilation, Less than 24 Consecutive Hours, High Flow/Velocity Cannula (ICD-10-PCS; 2022-11-09)
PROC: 5A09357 Assistance with Respiratory Ventilation, Less than 24 Consecutive Hours, Continuous Positive Airway Pressure (ICD-10-PCS; 2022-11-09)
DX: A41.9 Sepsis, unspecified organism (principal); I26.99 Other pulmonary embolism without acute cor pulmonale; J18.9 Pneumonia, unspecified organism; I50.43 Acute on chronic combined systolic (congestive) and diastolic (congestive) heart failure; J96.00 Acute respiratory failure, unspecified whether with hypoxia or hypercapnia; N17.9 Acute kidney failure, unspecified; I13.0 Hypertensive heart and chronic kidney disease with heart failure and stage 1 through stage 4 chronic kidney disease, or unspecified chronic kidney disease; L97.528 Non-pressure chronic ulcer of other part of left foot with other specified severity; R65.20 Severe sepsis without septic shock; I25.10 Atherosclerotic heart disease of native coronary artery without angina pectoris; K59.00 Constipation, unspecified; J43.9 Emphysema, unspecified; Z79.4 Long term (current) use of insulin; Z95.820 Peripheral vascular angioplasty status with implants and grafts; N18.30 Chronic kidney disease, stage 3 unspecified; K75.81 Nonalcoholic steatohepatitis (NASH); D50.0 Iron deficiency anemia secondary to blood loss (chronic); Z90.3 Acquired absence of stomach [part of]; Z85.028 Personal history of other malignant neoplasm of stomach; Z20.822 Contact with and (suspected) exposure to COVID-19; E78.00 Pure hypercholesterolemia, unspecified; Z88.2 Allergy status to sulfonamides; I44.7 Left bundle-branch block, unspecified; L97.529 Non-pressure chronic ulcer of other part of left foot with unspecified severity; I70.209 Unspecified atherosclerosis of native arteries of extremities, unspecified extremity; E10.42 Type 1 diabetes mellitus with diabetic polyneuropathy; Z95.5 Presence of coronary angioplasty implant and graft; E10.22 Type 1 diabetes mellitus with diabetic chronic kidney disease; E10.51 Type 1 diabetes mellitus with diabetic peripheral angiopathy without gangrene; E10.621 Type 1 diabetes mellitus with foot ulcer; E10.69 Type 1 diabetes mellitus with other specified complication; E78.5 Hyperlipidemia, unspecified
CPT/HCPCS: 0223U; 36415; 36569; 71045; 71250; 71260; 74177; 80048; 80053; 81001; 81003; 82550; 82553; 82948; 83605; 83735; 83880; 84436; 84443; 84479; 84484; 85025; 85379; 85610; 85730; 86021; 86039; 86140; 86200; 86431; 86631; 86635; 86738; 86757; 87040; 87086; 87400; 87420; 93005; 93306; 93925; 93970; 94640; 94660; 94667; 94799; 96372; 96374; 96375; 99252; 99284; J0692; J1170; J1644; J1885; J1940; J2270; J2405; J2920; J2997; J7050; Q9967

== ENCOUNTER 2024-12-23 21:31 | Emergency (ER) | payer BC, MEDICARE ==
[~2024-12-23] VITALS: Ht 180.3 cm; Wt 89.4 kg
[~2024-12-23 21:31] MED LIST changes: +EXFORGE 10-1601 EACH PO; +FARXIGA5 MG PO; +FOLIC ACID0.4 MG PO; +HYDRALAZINE HCL25 MG PO; +LIPITOR20 MG PO; +LORTAB 10 MG-3473 ML PO; +METOPROLOL SUCC50 MG PO; +NOVOLOG100 UNIT/1 SC; +OMEGA-31000 MG PO; +PANTOPRAZOLE SO40 MG PO; +PLAVIX75 MG PO; +TADALAFIL20 M1 PO; +TRESIBA FL100 UNIT/1 SC; +TRICOR145 MG PO; +VICTOZA 3-0.6 MG/0.1 SC
[2024-12-23 21:35] VITALS: PULSE 81; RESP 18; TEMP 97.2
[2024-12-23 22:02] VITALS: BP 156/70; PULSE 81; RESP 18; TEMP 97.2; O2SAT 96
[2024-12-23] MEDS: BACITRACIN ZINC 0.9GM TP ONE (22:07)
[2024-12-23] MEDS: TETANUS/DIPHTHERIA TOX ADULT 0.5 ML SYR IM STA (22:08)
== END 2024-12-23 22:02 | disposition home or self-care (01) ==
LOC: FSED 21:34
DX: S61.213A Laceration without foreign body of left middle finger without damage to nail, initial encounter (principal); W26.0XXA Contact with knife, initial encounter; Y92.89 Other specified places as the place of occurrence of the external cause; I10 Essential (primary) hypertension; E11.9 Type 2 diabetes mellitus without complications; E78.5 Hyperlipidemia, unspecified; I25.10 Atherosclerotic heart disease of native coronary artery without angina pectoris; I73.9 Peripheral vascular disease, unspecified; Z85.89 Personal history of malignant neoplasm of other organs and systems
CPT/HCPCS: 90471; 90714; 99282

== ENCOUNTER 2024-12-31 08:06 | Emergency (ER) | payer BC, MEDICARE ==
[~2024-12-31] VITALS: Ht 180.3 cm; Wt 89.6 kg
[2024-12-31] MEDS ORDERED: APIDRA100 UNIT/2 (08:19)
[2024-12-31] MEDS: KETOROLAC TROMETHAMINE 60 MG/2 ML VIAL IM ONE (08:49)
[2024-12-31 09:00] VITALS: PULSE 70; RESP 16; TEMP 98.3; O2SAT 96
[2024-12-31] MEDS ORDERED: KETOROLAC TROME10 MG PO (09:00)
== END 2024-12-31 09:08 | disposition home or self-care (01) ==
LOC: FSED 08:09
DX: M79.644 Pain in right finger(s) (principal); M65.331 Trigger finger, right middle finger; I10 Essential (primary) hypertension; E11.9 Type 2 diabetes mellitus without complications; I25.10 Atherosclerotic heart disease of native coronary artery without angina pectoris; E78.5 Hyperlipidemia, unspecified; I73.9 Peripheral vascular disease, unspecified; K21.9 Gastro-esophageal reflux disease without esophagitis; Z85.89 Personal history of malignant neoplasm of other organs and systems
CPT/HCPCS: 96372; 99284; J1885